=== PATIENT | female | born 1955 | race American Indian/Alaskan Native ===

== ENCOUNTER 2020-01-06 08:48 | Outpatient (CLI) | payer MEDICARE, OTHER | END 2020-01-06 08:49 | disposition home or self-care (01) | LOC: LABHHL 08:48 | PROVIDERS: ATTEND Surgery | DX: D36.0 Benign neoplasm of lymph nodes (principal) | CPT/HCPCS: 88305 ==

== ENCOUNTER 2020-02-21 10:14 | Day surgery (SDC) | payer MEDICARE ==
[~2020-02-21 10:14] MED LIST: BUPIVACAINE-EPINEPHRINE/PF 0.5%-1:200,000 (30 ML) VIAL INFILTRATI ONE; CELECOXIB 200 MG CAP PO NR; GABAPENTIN 300 MG CAP PO NR; LACTATED RINGERS 1,000 ML IV SCH; LIDOCAINE (1%) 10 MG/1 ML VIAL 20 ML MDV ONE; MAGNESIUM OXIDE 400 MG TAB PO SCH; MIDAZOLAM 2 MG/2 ML INJ IV NR; ceFAZolin/Water 2 GM/20 ML 2 GM/20 ML SYRINGE IV NR; dexAMETHasone 4 MG/ML VIAL ONE; fentaNYL 100 MCG/2 ML INJ IV PRN
[2020-02-21] MEDS ORDERED: HYDROmorphone 1 MG/1 ML INJ ONE (10:58)
[2020-02-21] MEDS ORDERED: propofoL 200 MG/20 ML VIAL IV ONE (10:58)
[2020-02-21] MEDS ORDERED: LIDOCAINE MPF (2%) 20 MG/1 ML VIAL 5 ML ONE (10:58)
[2020-02-21] MEDS ORDERED: SODIUM CHLORIDE P/F VIAL 10 ML 10 ML ONE (11:05)
[2020-02-21] MEDS ORDERED: METHYLENE BLUE 50 MG/10 ML AMP ONE (11:05)
[2020-02-21] MEDS ORDERED: WATER FOR IRRIG STERILE 1,000 ML BOTTLE IR ONE (12:30)
[2020-02-21] MEDS ORDERED: BACITRACIN ZINC OINT 28.4 GM TP ONE ×2 (12:37→13:34)
[2020-02-21] MEDS ORDERED: METHYLENE BLUE 50 MG/10 ML AMP IRRIGATION ONE (13:45)
[2020-02-21] MEDS ORDERED: SODIUM CHLORIDE 0.9% P/F 10 ML VIAL INFILTRATI ONE (13:46)
[2020-02-21] MEDS ORDERED: ONDANSETRON 4 MG/2 ML INJ ONE (14:01)
[2020-02-21] MEDS ORDERED: traMADol 50 MG TAB PO PRN (14:44)
[2020-02-21 15:09] VITALS: BP 138/87
== END 2020-02-21 16:20 | disposition home or self-care (01) ==
LOC: OR 10:14
PROVIDERS: ATTEND Surgery
DX: C50.211 Malignant neoplasm of upper-inner quadrant of right female breast (principal); I89.8 Other specified noninfective disorders of lymphatic vessels and lymph nodes; I10 Essential (primary) hypertension; G47.30 Sleep apnea, unspecified; Z11.59 Encounter for screening for other viral diseases; E66.9 Obesity, unspecified; M19.90 Unspecified osteoarthritis, unspecified site; D64.9 Anemia, unspecified; Z98.890 Other specified postprocedural states; Z79.899 Other long term (current) drug therapy; Z72.89 Other problems related to lifestyle; Z80.8 Family history of malignant neoplasm of other organs or systems; Z88.8 Allergy status to other drugs, medicaments and biological substances; Z86.73 Personal history of transient ischemic attack (TIA), and cerebral infarction without residual deficits; Z17.0 Estrogen receptor positive status [ER+]; Z68.37 Body mass index [BMI] 37.0-37.9, adult
CPT/HCPCS: 19301; 38525; 38792; 76098; 78800; 88302; 88307; 88333; A9541; J0690; J1100; J1170; J2250; J2405; J2704; J3010; J7120; Q9968; U0003; 64450; 88341; 88342

== ENCOUNTER 2020-12-12 13:13 | Outpatient (CLI) | payer MEDICARE ==
--- NOTE | 2020-12-12 14:24 | Mammography Report ---
DIGITAL SCREENING MAMMOGRAM WITH CAD, 12/12/2020 CLINICAL INFORMATION / INDICATION: Routine screening mammography. The patient has a personal history of right breast cancer treated with lumpectomy. TECHNIQUE: Digital bilateral 2D mammography was obtained in the craniocaudal and mediolateral obliqu e projections. This examination was interpreted with the benefit of Computer-Aided Detection analysis . COMPARISON: Right diagnostic mammogram, 01/05/2020. Bilateral diagnostic mammogram, 12/09/2019 FINDINGS: Breast Density: The breasts are heterogeneously dense, which may obscure small masses. No dominant mass, suspicious calcifications, or architectural distortion in either breast. Interval postsurgical change is noted within the right breast. IMPRESSION: No mammographic evidence of malignancy. Follow up recommendation: Routine yearly BI-RADS Category 2: Benign. A "normal" or negative report should not discourage follow up or biopsy of a clinically significant f inding. A written summary of these findings will be mailed to the patient. The patient will be entered into a mammography reporting system which will generate a reminder letter for the patient's next appointmen t at the appropriate interval. [employer] recommends yearly mammograms starting at age 40 and continuing as l shayy as a woman is in good health. Breast MRI is recommended for women with an approximate 20-25% or greater lifetime risk of breast cancer, including women with a strong family history of breast or ova sudhakar cancer or who have been treated for Hodgkin's disease. Signer Name: Georgia Ribera MD Signed: 12/12/2020 2:17 PM Workstation Name: [id number]
--- NOTE | 2020-12-12 16:54 | XRay Report ---
LEFT HIP AND PELVIS 3 VIEWS INDICATION: LEFT HIP PAIN. COMPARISON: No relevant prior imaging study available. FINDINGS: No acute, displaced fracture or dislocation is seen. Osteoarthrosis changes are noted at the hips wit h prominent acetabular osteophytes that result in over coverage. No femoral head osteonecrosis is see n. IMPRESSION: 1. 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 Signer Name: Eliceo Ahumada MD Signed: 12/12/2020 4:50 PM Workstation Name: [id number]
== END 2020-12-12 13:14 | disposition home or self-care (01) ==
LOC: SPVWC 13:13
PROVIDERS: ATTEND Internal Medicine
DX: Z12.31 Encounter for screening mammogram for malignant neoplasm of breast (principal); M16.12 Unilateral primary osteoarthritis, left hip; M25.78 Osteophyte, vertebrae
CPT/HCPCS: 77067